=== PATIENT | male | born 1985 | race Caucasian/White ===

== ENCOUNTER 2018-07-08 09:10 | Emergency (ER) | payer OTHER, BC ==
--- NOTE | 2018-07-08 10:05 | EDM.PDOC ---
ED HPI GENERAL MEDICAL PROBLEM - General Chief Complaint: Upper Extremity Injury/Pain Stated Complaint: ARM PAIN Time Seen by Provider: 07/08/18 09:30 Source of Information: Reports: Patient History Limitations: Reports: No Limitations - History of Present Illness INITIAL COMMENTS - FREE TEXT/NARRATIVE: The patient presents from the occupational health clinic for an injury to his right arm. He was working early this morning at 0445. He was bleeding off a 2 inch hose to another line and it broke loose and hit him in the right inner upper arm. He has a 0.5cm puncture wound to the upper inner arm. He has some pain to the site. He has no numbness or weakness in his arm. He is right handed. His tetanus was updated at the occupational health clinic. Nothing was injected into his arm. He was using air and he denies having the air injected in his arm. Onset: Sudden Duration: Hour(s): (0445 this morning) Location: Reports: Upper Extremity, Right (inner upper arm) Quality: Reports: Sharp Severity: Mild Improves with: Reports: Immobilization Worsens with: Reports: Movement Context: Reports: Trauma (He was hit by a hose) Associated Symptoms: Reports: No Other Symptoms Right Arm Pain Score (Numeric/FACES): 4 - Related Data Allergies Allergy/AdvReac Type Severity Reaction Status Date / Time No Known Allergies Allergy Verified 07/08/18 09:27 Home Meds: Home Meds Dextroamphetamine/Amphetamine [Adderall 20 mg Tablet] 20 mg PO DAILY 07/08/18 [ History] cephALEXin [Keflex] 500 mg PO Q6H #40 cap 07/08/18 [Rx] Past Medical History Musculoskeletal History: Reports: Fracture Psychiatric History: Reports: ADHD - Infectious Disease History Infectious Disease History: Reports: Chicken Pox Social & Family History - Tobacco Use Smoking Status *Q: Current Every Day Smoker Years of Tobacco use: 10 Packs/Tins Daily: 0.5 Second Hand Smoke Exposure: Yes - Caffeine Use Caffeine Use: Reports: Coffee, Energy Drinks, Soda - Recreational Drug Use Recreational Drug Use: No Review of Systems - Review of Systems Review Of Systems: See Below Constitutional: Reports: No Symptoms Eyes: Reports: No Symptoms Ears: Reports: No Symptoms Nose: Reports: No Symptoms Mouth/Throat: Reports: No Symptoms Respiratory: Reports: No Symptoms Cardiovascular: Reports: No Symptoms GI/Abdominal: Reports: No Symptoms Genitourinary: Reports: No Symptoms Musculoskeletal: Reports: Other (0.5cm puncture wound to his right inner upper arm) ED EXAM, GENERAL - Physical Exam Exam: See Below Exam Limited By: No Limitations General Appearance: Alert, No Apparent Distress Ears: Normal External Exam Nose: Normal Inspection Head: Atraumatic, Normocephalic Neck: Normal Inspection Respiratory/Chest: No Respiratory Distress Extremities: Other (0.5cm laceration to the right inner upper arm. Good sensation and pulses distally.) Course - Vital Signs Last Recorded V/S: Last Vital Signs Temp 98.0 F 07/08/18 09:19 Pulse 64 07/08/18 09:19 Resp 18 07/08/18 09:19 BP 151/91 H 07/08/18 09:19 Pulse Ox 98 07/08/18 09:19 - Orders/Labs/Meds Orders: Active Orders 24 hr Category Date Time Status Humerus Rt [CR] Stat Exams 07/08/18 09:52 Taken Meds: Medications Discontinued Medications Generic Name Dose Route Start Last Admin Trade Name Edmund PRN Reason Stop Dose Admin Lidocaine/Epinephrine 20 ml 07/08/18 10:08 Xylocaine 1% With Epinephrine 1:100,000 INJECT 07/08/18 10:09 ONETIME ONE - Re-Assessments/Exams Free Text/Narrative Re-Assessment/Exam: 07/08/18 10:23 His x-ray shows no bony injury. He does have some mild subcutaneous emphysema. I talked with Dr Cotter our orthopedic surgeon bus info consultant and he recommended not closing it but to leave it open dress it and put him on antibiotics. I will have him follow up with Dr Cotter on Saturday. Departure - Departure Time of Disposition: 10:30 Disposition: Home, Self-Care 01 Condition: Good Clinical Impression: Puncture wound of right upper arm Qualifiers: Encounter type: initial encounter Qualified Code(s): S41.131A - Puncture wound without foreign body of right upper arm, initial encounter - Discharge Information *PRESCRIPTION DRUG MONITORING PROGRAM REVIEWED*: Not Applicable *COPY OF PRESCRIPTION DRUG MONITORING REPORT IN PATIENT THANH: Not Applicable Prescriptions: cephALEXin [Keflex] 500 mg PO Q6H #40 cap Referrals: PCP,None [Ordering Only Provider] - Ignacio Cotter MD [Physician] - 1 Week Forms: ED Department Discharge Additional Instructions: Clean the wound 2 times per day with warm soapy water and apply antibiotic ointment after and dress the wound. Take the keflex 4 times per day for 10 days. Follow up with Dr Cotter on Saturday. Call his office today to make that appointment. - My Orders Last 24 Hours: My Active Orders 07/08/18 09:52 Humerus Rt [CR] Stat - Assessment/Plan Last 24 Hours: My Active Orders 07/08/18 09:52 Humerus Rt [CR] Stat
[2018-07-08] MEDS ORDERED: Lidocaine 1% with EPINEPHrine 1:100,000 20 ML MDV INJECT ONE (10:08)
[2018-07-08] MEDS ORDERED: Cephalexin 500 MG Cap PO ONE (10:43)
--- NOTE | 2018-07-08 12:02 | CR ---
Right humerus: Two views of the right humerus were obtained. Comparison: No previous study. Soft tissue swelling is identified. No fracture or other bony abnormality is seen. Impression: 1. Soft tissue swelling. 2. No acute bony abnormality is identified on right humerus study. Diagnostic code #2
== END 2018-07-08 10:50 | disposition home or self-care (01) ==
LOC: JD.ED 09:10
DX: S41.131A Puncture wound without foreign body of right upper arm, initial encounter (principal); F17.210 Nicotine dependence, cigarettes, uncomplicated; W45.8XXA Other foreign body or object entering through skin, initial encounter; Z79.899 Other long term (current) drug therapy
CPT/HCPCS: 73060; 99284; A9270; 99283